=== PATIENT | female | born 1985 | race Caucasian/White ===

== ENCOUNTER 2017-07-05 23:09 | Emergency (ER) | payer OTHER ==
[~2017-07-05] VITALS: Ht 170.2 cm; Wt 98.5 kg
[~2017-07-05 23:09] MED LIST: ENDOCET 5-3251 EACH PO; MOTRIN800 MG PO; TUMS DUAL ACTI1 EACH
[2017-07-06] MEDS ORDERED: NORCO 5/3251 TABLET PO (00:28)
[2017-07-06] MEDS ORDERED: MOTRIN600 MG PO (00:29)
[2017-07-06 00:41] VITALS: BP 142/89
== END 2017-07-06 00:41 | disposition home or self-care (01) ==
LOC: EME 23:09
PROC: 2W3EX1Z Immobilization of Right Hand using Splint (ICD-10-PCS; principal; 2017-07-05)
DX: S63.91XA Sprain of unspecified part of right wrist and hand, initial encounter (principal); W22.09XA Striking against other stationary object, initial encounter; Y92.008 Other place in unspecified non-institutional (private) residence as the place of occurrence of the external cause; Z87.891 Personal history of nicotine dependence
CPT/HCPCS: 73130; 99281; 99283

== ENCOUNTER 2018-03-22 16:57 | Emergency (ER) | payer OTHER ==
[~2018-03-22] VITALS: Ht 172.7 cm; Wt 97.1 kg
[~2018-03-22 16:57] MED LIST changes: +MOTRIN600 MG PO; +NORCO 5/3251 TABLET PO
[2018-03-22 17:57] LABS: HEMATOCRIT 40.4 % (36.0-46.0); MCH 30.2 PG (29.0-34.0); MCHC 34.7 G/DL (30.0-36.0); MCV 87.1 FL (83-99); PLATELET COUNT 312 K/uL (156-360); RBC DIS.WIDTH-CV 13.1 % (11.8-14.6); RBC DIS.WIDTH-SD 41.1 % (39-53); RED BLOOD COUNT 4.64 M/uL (3.80-5.20); WHITE BLOOD COUNT 10.9 K/uL (4.1-10.2)
[2018-03-22 18:04] LABS: ALBUMIN 4.5 g/dL (3.2-4.8)
[2018-03-22 18:05] LABS: CHLORIDE 104 mEq/L (99-109); POTASSIUM 3.9 mEq/L (3.7-5.4); SODIUM 141 mEq/L (136-147)
[2018-03-22 18:07] LABS: GLUCOSE 103 mg/dL (70-99); TOTAL PROTEIN 8.1 g/dL (6.4-8.3)
[2018-03-22 18:09] LABS: TOTAL BILIRUBIN 0.4 mg/dL (0.0-1.0)
[2018-03-22 18:10] LABS: ALKALINE PHOSPHATASE 82 IU/L (3-129); CREATININE 0.8 mg/dL (0.6-1.3); GFR ESTIMATE (CALCULATED) > 59 mL/min/
[2018-03-22 18:12] LABS: AST (GOT) 15 IU/L (2-34); UREA NITROGEN (BUN) 8 mg/dL (9-23)
[2018-03-22 18:13] LABS: ALT (GPT) 15 IU/L (3-49)
[2018-03-22 18:19] LABS: QUANTITATIVE HCG 2539.4 MIU/ML
[2018-03-22 19:21] VITALS: BP 143/112
[2018-03-22 19:43] LABS: APPEARANCE CLEAR ((CLEAR)); BILIRUBIN NEGATIVE; BLOOD LARGE; GLUCOSE (STRIP) NEGATIVE; KETONES NEGATIVE; LEUKOCYTES TRACE; NITRITE NEGATIVE; PROTEIN (STRIP) 30; SPECIFIC GRAVITY 1.004 (1.000-1.030); UROBILINOGEN 0.2 MG/DL (0.2-1.0)
[2018-03-22 19:55] LABS: BACTERIA RARE /HPF; EPITHELIAL CELLS 1+ /HPF; MUCUS NONE SEEN /LPF; RED BLOOD CELLS 40-50 /HPF (0-5); UCUL ADDED? NO; WHITE BLOOD CELLS 0-5 /HPF (0-5)
== END 2018-03-22 19:22 | disposition home or self-care (01) ==
LOC: RME 16:57 → EME 16:57 → RME 19:22
PROVIDERS: Physician Assistant
DX: O20.9 Hemorrhage in early pregnancy, unspecified (principal); O99.331 Smoking (tobacco) complicating pregnancy, first trimester; F17.200 Nicotine dependence, unspecified, uncomplicated; Z3A.01 Less than 8 weeks gestation of pregnancy
CPT/HCPCS: 76801; 80053; 81003; 84702; 85027; 86900; 86901; 99281; 99284